=== PATIENT | female | born 1995 | race Caucasian/White ===

== ENCOUNTER → 2016-07-29 | Outpatient (CLI) | payer BC ==
[2016-07-29 18:22] LABS: THYROID STIMULATING HORMONE 1.63 uIu/ml (0.300-4.500)
== END | disposition home or self-care (01) ==
LOC: C.LABSPEC 09:56
PROVIDERS: ATTEND Family Medicine
DX: R22.1 Localized swelling, mass and lump, neck (principal)

== ENCOUNTER → 2016-11-05 | Outpatient (CLI) | payer BC ==
--- NOTE | 2016-11-05 10:29 | Discharge Instructions ---
Discharge Instructions Procedure Procedure Date: Nov 05, 2016. Reason for visit: *Gabriele To Do1.5 Cm Left Level 5 Neck Mass. Discharge Discharge Date: Nov 05, 2016. Discharge Diagnosis: s/p left level 5 neck mass FNA Instructions Activity Recommendations: No limitations Return to School/Work: no limitations Recommended Home Diet: No Limitations Provider Instructions: ACTIVITY RECOMMENDATIONS: * Rest today. * Resume regular activity in one day. MEDICATIONS: * May take Tylenol or Ibuprofen as needed for pain. DIET: * Resume previous diet. SPECIAL CARE INSTRUCTIONS: Call your doctor if: * Temperature above 101 degrees F. * Pain not relieved by pain medicine ordered. * Increased drainage or redness from incision. * Notify your doctor with any questions or concerns. Call your doctor or go to the nearest Emergency Department if you experience: * Increased chest pain or shortness of breath. FOLLOW UP VISIT: Follow-up with Referring Physician as scheduled. Maria Trimble Recommendations: Call your doctor if: * Temperature above 101 degrees * Pain not relieved by pain medicine ordered * There is increased drainage or redness from any incision * You have any unanswered questions or concerns. Your Doctors Instructions noted above were prepared by provider Maury Suazo. Patient Signature Section: Patient Instructions Signature Page Cinthya Lozano Patient (or Guardian) Signature/Date: I have read and understand the instructions given to me by my caregivers. Caregiver/RN/Doctor Signature/Date: The above-named patient and/or guardian has received patient instructions on this date. + Original Patient Signature Page (only) stays with chart. Please make copy for patient.
--- NOTE | 2016-11-05 11:04 | DIAGNOSTIC IMAGING REPORT ---
ULTRASOUND GUIDED FINE NEEDLE ASPIRATION OF LEFT LEVEL 5 NECK MASS CLINICAL HISTORY: Left level 5 mass. COMPARISON STUDY: Neck CT September 30, 2016. PROCEDURE: Sonography of the left neck demonstrated a 1.5 cm cystic left level 5 lesion which corresponds to the abnormality on CT of September 30, 2016. This was targeted for fine needle aspiration. The procedure, risks and benefits were discussed with the patient. The patient agreed to the procedure and informed written consent was obtained. The procedure was performed by Dr. Suazo following a timeout. Skin of the left neck was prepped and draped in sterile fashion and local anesthesia was achieved with 1% lidocaine. Under direct ultrasound guidance, a 25-gauge fine needle aspiration was performed. There was immediate return of milky/chylous fluid. An additional pass was performed and the lesion was aspirated to completion. 2 cc of milky/chylous fluid was aspirated. Pathology was preliminarily satisfactory. IMPRESSION: Ultrasound guided fine needle aspiration of the 1.5 cm cystic left level 5 lesion. Lesion aspirated to completion with aspiration of 2 cc of milky/chylous fluid. The lesion may reflect a lymphangioma. Final pathology pending. Electronically signed by: Maury Suazo M.D. 11/05/2016 11:01 AM Dictated Date/Time: 11/05/2016 10:56 AM
== END | disposition home or self-care (01) ==
LOC: C.ULTR 09:49
DX: R22.1 Localized swelling, mass and lump, neck (principal); R89.6 Abnormal cytological findings in specimens from other organs, systems and tissues

== ENCOUNTER → 2017-01-13 | Outpatient (CLI) | payer BC ==
[2017-01-13 18:30] LABS: THYROID STIMULATING HORMONE 0.314 uIu/ml (0.300-4.500)
== END | disposition home or self-care (01) ==
LOC: C.LABSPEC 17:40
PROVIDERS: ATTEND Family Medicine
DX: R22.1 Localized swelling, mass and lump, neck (principal)